=== PATIENT | female | born 1965 | race Caucasian/White ===

== ENCOUNTER 2018-08-13 14:28 | Emergency (ER) | payer SELFPAY ==
[~2018-08-13] VITALS: Ht 157.5 cm; Wt 69.1 kg
[2018-08-13 14:35] VITALS: BP 122/74
--- NOTE | 2018-08-13 14:40 | NUR ---
PT BIB FAMILY TO THE ED WITH THE CHIEF C/O LEFT CHEST PAIN FOR A WEEK. NO SOB OR ACUTE RESPIRATORY DISTRESS NOTED, SATURATING 99% IN ROOM AIR. LUNGS CLEAR. STATES PAIN OF /10 AT THIS TIME. DENIES NAUSEA,VOMITING OR DIARRHEA. DENIES DIZZINESS. DENIES ANY OTHER PROBLEMS AT THIS TIME. AFEBRILE. ER MD AWARE.
[2018-08-13 15:14] LABS: BASOPHILS % (AUTO) 0.6 % (0.0-2.0); EOSINOPHILS # (AUTO) 0.3 K/uL (0-0.4); EOSINOPHILS % (AUTO) 4.3 % (0.0-4.0); HEMATOCRIT 36.4 % (36-48); HEMOGLOBIN 12.3 g/dL (12.0-16.0); LYMPHOCYTES # (AUTO) 2.1 K/uL (2.5-16.5); MEAN CORPUSCULAR HEMOGLOBIN 32 pg (27-31); MEAN CORPUSCULAR HGB CONC 34 g/dL (33-37); MEAN CORPUSCULAR VOLUME 95.3 fL (80-94); MONOCYTES # (AUTO) 0.5 K/uL (0.8-1.0); MONOCYTES % (AUTO) 6.9 % (1.7-9.3); NEUTROPHILS # (AUTO) 4.7 K/uL (1.8-7.7); NEUTROPHILS % (AUTO) 61.2 % (42.2-75.2); PLATELET COUNT (AUTO) 232 K/uL (140-450); RED BLOOD CELL COUNT(AUTO) 3.82 MIL/uL (4.20-5.40); RED CELL DISTRIBUTION WIDTH 13.5 % (11.6-13.7); WHITE BLOOD COUNT (AUTO) 7.7 K/uL (4.8-10.8)
[2018-08-13 15:29] LABS: ANION GAP 14.8 (8-16); CREATININE 0.8 mg/dL (0.6-1.3); POTASSIUM 3.8 mmol/L (3.5-5.1)
[2018-08-13 15:36] LABS: ALBUMIN 3.3 g/dL (3.4-5.0); TOTAL BILIRUBIN 0.2 mg/dL (0.0-1.0)
--- NOTE | 2018-08-13 15:58 | NUR ---
PT BEING EVALUATED BY ER AT THIS TIME.
[2018-08-13 16:11] VITALS: BP 144/92
== END 2018-08-13 16:11 | disposition home or self-care (01) ==
LOC: MED 14:28
DX: R07.89 Other chest pain (principal); R20.0 Anesthesia of skin; K21.9 Gastro-esophageal reflux disease without esophagitis; I10 Essential (primary) hypertension
CPT/HCPCS: 36415; 71045; 80053; 84484; 85025; 93005; 99284; Q0092